=== PATIENT | male | born 1970 | race Caucasian/White ===

== ENCOUNTER 2016-11-04 11:54 | Emergency (ER) | payer MEDICARE, OTHER ==
[~2016-11-04] VITALS: Ht 165.1 cm; Wt 49.9 kg
[~2016-11-04 11:54] MED LIST: ACETAMINOPHEN325 M1 ORAL; ASCORBIC ACID500 MG ORAL; BACTRIM DS TAB1 EAC1 ORAL; BP MED PO; CALCIUM ACETAT667 MG PO; CEPHALEXIN500 MG ORAL; CIPROFLOXA250 MG/5 M PO; CIPROFLOXACIN250 MG PO; CLONIDINE0.1 MG GT; CLONIDINE0.1 MG PO; CREON DR 24,001 EACH PO; DEXTROSE 50%-WA50 M1 IV; DOCUSATE SODIU100 MG ORAL; FLAGYL500 MG ORAL; HEPARIN1000 UNIT/ SUBQ; HUMALOG100 UNIT/4 SUBQ; IMODIUM2 MG ORAL; LABETALOL H5 MG/1 M1 PO; LABETALOL HCL300 MG ORAL; MEROPENEM500 MG IVPB; METRONIDAZOLE500 MG ORAL; NORCO 5-325 TA1 EACH ORAL; NOVOLOG100 UNIT/3 SUBQ; QUESTRAN POWDER4 GM ORAL; REGLAN5 MG ORAL; SALINE 10ML FLU10 ML IVF; TYLENOL EXTRA500 MG ORAL; VANCOMYCIN HCL1 G1 IV; ZINC SULFATE220 M1 ORAL; ZOFRAN4 MG ORAL
[2016-11-04 11:59] VITALS: BP 119/64
[2016-11-04 12:46] LABS: BASOPHILS % (AUTO) 1.4 % (0.0-2.0); EOSINOPHILS % (AUTO) 2.6 % (0.0-3.0); LYMPHOCYTES % (AUTO) 25.5 % (20.0-45.0); MEAN CORPUSCULAR HEMOGLOBIN 32.2 PG (27.0-31.0); MEAN CORPUSCULAR HGB CONC 33.5 G/DL (32.0-36.0); MEAN CORPUSCULAR VOLUME 96 FL (80-99); MONOCYTES % (AUTO) 10.1 % (1.0-10.0); NEUTROPHILS % (AUTO) 60.5 % (45.0-75.0); PLATELET COUNT 242 K/UL (150-450); RED BLOOD COUNT 2.67 M/UL (4.70-6.10)
--- NOTE | 2016-11-04 12:46 | Emergency Room Report ---
History of Present Illness General Chief Complaint: Dizziness Source: Patient Present Illness HPI History present with reports of lightheadedness and dizziness Patient reports that when he sitting up he feels increased dizziness Patient had dialysis early this morning and finished at approximately 9 this morning Patient reports recent abdominal surgery with what appears to be a laparoscopic cholecystectomy last week at another facility Denies any vomiting or diarrhea denies any chest pain shortness of breath Patient has had several dialysis procedures since beginning to feel lightheaded last week Otherwise denies any syncopal episodes Allergies: Coded Allergies: No Known Allergies (Unverified , 08/16/14) Patient History Past Medical History: see triage record Pertinent Family History: none Reviewed Nursing Documentation: PMH: Agreed, PSxH: Agreed Nursing Documentation-PMH Hx Cardiac Problems: Yes Hx Hypertension: Yes Hx Pacemaker: No Hx Asthma: No Hx COPD: No Hx Diabetes: Yes Hx Cancer: No Hx Gastrointestinal Problems: No Hx Dialysis: Yes - TUES, THURS, SAT Hx Neurological Problems: Yes Hx Cerebrovascular Accident: No Hx Transient Ischemic Attacks: No Hx Seizures: No Hx Peripheral Neuropathy: Yes Hx Headaches: Yes Hx Numbness: Yes Review of Systems All Other Systems: negative except mentioned in HPI Physical Exam Vital Signs Date Time Temp Pulse Resp B/P (MAP) Pulse Ox O2 Delivery O2 Flow Rate FiO2 11/04/16 11:59 98.1 85 20 119/64 98 Room Air Sp02 EP Interpretation: reviewed, normal General Appearance: well appearing, no apparent distress Head: normocephalic, atraumatic Eyes: bilateral eye PERRL, bilateral eye EOMI ENT: hearing grossly normal, normal pharynx, TMs + canals normal, uvula midline Neck: full range of motion, supple, no meningismus, no bony tend Respiratory: lungs clear, normal breath sounds, no rhonchi, no respiratory distress, no retraction, no accessory muscle use Cardiovascular #1: normal peripheral pulses, regular rate, rhythm, no edema, no gallop, no JVD, no murmur Gastrointestinal: normal bowel sounds, non tender, soft, no mass, no organomegaly, non-distended, no guarding, no hernia, no pulsatile mass, no rebound Genitourinary: no CVA tenderness Musculoskeletal: normal inspection Neurologic: oriented x3, responsive, 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, motor strength/ tone normal, sensory intact Psychiatric: mood/affect normal Skin: normal color, no rash, warm/dry, palpation normal Lymphatic: normal inspection, no adenopathy Medical Decision Making Diagnostic Impression: Primary Impression: Dizziness ER Course Patient is a fairly complex patient with multiple differential to consideration including but not limited to cardiac cardiopulmonary and vascular emergencies Patient blood work reveals some chronic anemia with hemoglobin 8.6 however the patient has had hemoglobin and this level previously No signs of any active hemorrhage patient at this time remains hemodynamically appropriate blood pressure 1:30 systolic Patient has followup appointment with his surgeon for the gallbladder removal today and will follow closely Labs Test 11/04/16 12:29 White Blood Count 6.0 K/UL (4.8-10.8) Red Blood Count 2.67 M/UL (4.70-6.10) Hemoglobin 8.6 G/DL (14.2-18.0) Hematocrit 25.7 % (42.0-52.0) Mean Corpuscular Volume 96 FL (80-99) Mean Corpuscular Hemoglobin 32.2 PG (27.0-31.0) Mean Corpuscular Hemoglobin Concent 33.5 G/DL (32.0-36.0) Red Cell Distribution Width 12.0 % (11.6-14.8) Platelet Count 242 K/UL (150-450) Mean Platelet Volume 6.0 FL (6.5-10.1) Neutrophils (%) (Auto) 60.5 % (45.0-75.0) Lymphocytes (%) (Auto) 25.5 % (20.0-45.0) Monocytes (%) (Auto) 10.1 % (1.0-10.0) Eosinophils (%) (Auto) 2.6 % (0.0-3.0) Basophils (%) (Auto) 1.4 % (0.0-2.0) Sodium Level 139 mEQ/L (135-145) Potassium Level 3.5 mEQ/L (3.4-4.9) Chloride Level 93 mEQ/L (98-107) Carbon Dioxide Level 35 mEQ/L (20-30) Anion Gap 11 (5-15) Blood Urea Nitrogen 13 mg/dL (7-23) Creatinine 5.7 mg/dL (0.7-1.2) Estimat Glomerular Filtration Rate 10.8 mL/min (>60) Glucose Level 229 mg/dL (74-106) Calcium Level 7.9 mg/dL (8.6-10.2) Total Bilirubin 0.3 mg/dL (0.0-1.2) Aspartate Amino Transf (AST/SGOT) 16 U/L (5-40) Alanine Aminotransferase (ALT/SGPT) 19 U/L (3-41) Alkaline Phosphatase 125 U/L (40-129) Total Creatine Kinase 102 U/L (38-174) Creatine Kinase MB 4.6 ng/mL (< 6.7) Creatine Kinase MB Relative Index 4.5 Troponin I < 0.30 ng/mL (<=0.30) Total Protein 7.2 g/dL (6.6-8.7) Albumin 3.8 g/dL (3.5-5.2) Globulin 3.4 g/dL Albumin/Globulin Ratio 1.1 (1.0-2.7) Rhythm Strip Diag. Results EP Interpretation: yes Rate: 67 Rhythm: NSR, no PVC's, no ectopy Last Vital Signs Date Time Temp Pulse Resp B/P (MAP) Pulse Ox O2 Delivery O2 Flow Rate FiO2 11/04/16 11:59 98.1 85 20 119/64 98 Room Air Status: improved Disposition: HOME, SELF-CARE Condition: Improved Referrals: AKBAR MORALES (PCP) Additional Instructions: Patient is provided with the discharge instructions notified to follow up with primary doctor in the next 2-3 days otherwise return to the er with any worsening symptoms. Please note that this report is being documented using [employer] technology. This can lead to erroneous entry secondary to incorrect interpretation by the dictating instrument. JARROD BARTHOLOMEW D.O. Nov 04, 2016 12:46
[2016-11-04 12:59] LABS: ALBUMIN/GLOBULIN RATIO 1.1 (1.0-2.7); CALCIUM 7.9 mg/dL (8.6-10.2); CREATININE 5.7 mg/dL (0.7-1.2); GLOMERULAR FILTRATION RATE 10.8 mL/min (>60); POTASSIUM 3.5 mEQ/L (3.4-4.9); TOTAL PROTEIN 7.2 g/dL (6.6-8.7)
[2016-11-04 13:02] LABS: TROPONIN I < 0.30 ng/mL (<=0.30)
[2016-11-04 13:09] LABS: CKMB 4.6 ng/mL (< 6.7)
[2016-11-04 13:20] VITALS: BP 130/65
[2016-11-04 13:23] VITALS: BP 130/65
--- NOTE | 2016-11-05 14:47 | Cardiology Report ---
APPROVED REPORT EKG Measurement Heart [id number] Normal sinus rhythm Nonspecific ST abnormality Abnormal ECG
== END 2016-11-04 13:24 | disposition home or self-care (01) ==
LOC: EMR 12:32
DX: R42 Dizziness and giddiness (principal); Z90.49 Acquired absence of other specified parts of digestive tract; I10 Essential (primary) hypertension; E11.42 Type 2 diabetes mellitus with diabetic polyneuropathy
CPT/HCPCS: 36415; 80053; 82550; 82553; 84484; 85025; 93005; 99284

== ENCOUNTER 2016-11-06 13:35 | Emergency (ER) | payer MEDICARE, OTHER ==
[~2016-11-06] VITALS: Ht 165.1 cm; Wt 52.2 kg
[2016-11-06 13:56] VITALS: BP_SYST 114; BP_SYST 94; BP_DIAS 59; BP_DIAS 60
[2016-11-06] MEDS ORDERED: Acetaminophen 500mg (ES) tab ORAL ONE (14:15)
--- NOTE | 2016-11-06 14:17 | Emergency Room Report ---
History of Present Illness General Chief Complaint: General Complaint Source: Patient Present Illness HPI 46-year-old male, history of end-stage renal disease on dialysis Thursday and Thursday, last dialysis was completed today, presenting with one week of headache, diarrhea, lightheadedness. Patient states that he has had watery brown diarrhea about 5 episodes today for the last 7 days. Reports some nausea but no vomiting. Denies any abdominal pain. Also complaining of lightheadedness especially when he walks associated with a constant generalized headache. Denies any blurry vision, neck pain, motor sensory weakness. Patient states that he has not taken anything for the headache pain. Patient states that he was at dialysis today, told them that he had a headache, but they did not do anything. Patient was last seen in the emergency room 2 days ago for dizziness after dialysis, states that he frequently gets dizzy after dialysis. Denies any fever chills chest pain shortness of breath Allergies: Coded Allergies: No Known Allergies (Unverified , 08/16/14) Patient History Past Medical History: see triage record Past Surgical History: none Pertinent Family History: none Reviewed Nursing Documentation: PMH: Agreed, PSxH: Agreed Nursing Documentation-PMH Past Medical History: No History, Except For Hx Cardiac Problems: Yes Hx Hypertension: Yes Hx Pacemaker: No Hx Asthma: No Hx COPD: No Hx Diabetes: Yes Hx Cancer: No Hx Gastrointestinal Problems: No Hx Dialysis: Yes - , , THU Hx Neurological Problems: Yes Hx Cerebrovascular Accident: No Hx Transient Ischemic Attacks: No Hx Seizures: No Hx Peripheral Neuropathy: Yes Hx Headaches: Yes Hx Numbness: Yes Review of Systems All Other Systems: negative except mentioned in HPI Physical Exam Vital Signs Date Time Temp Pulse Resp B/P (MAP) Pulse Ox O2 Delivery O2 Flow Rate FiO2 11/06/16 13:38 98.2 80 18 94/60 98 Room Air Sp02 EP Interpretation: reviewed, normal General Appearance: normal inspection, well appearing, alert, GCS 15, non-toxic , other - Middle aged male, conversing appropriately, appears tired however nontoxic Head: normocephalic, atraumatic Eyes: bilateral eye normal inspection, bilateral eye PERRL, bilateral eye EOMI ENT: normal ENT inspection, normal pharynx, normal voice, moist mucus membranes Neck: normal inspection, full range of motion, supple Respiratory: normal inspection, lungs clear, normal breath sounds, no respiratory distress, no retraction, no wheezing, speaking full sentences, chest symmetrical Cardiovascular #1: normal inspection, regular rate, rhythm, no edema, normal capillary refill Cardiovascular #2: 2+ radial (R), 2+ radial (L) Gastrointestinal: normal inspection, normal bowel sounds, non tender, soft, non -distended, no guarding Genitourinary: no CVA tenderness Musculoskeletal: normal inspection, back normal, normal range of motion, non- tender, other - Left upper extremity AV fistula with palpable thrill Neurologic: normal inspection, alert, oriented x3, responsive, 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 Also with one week of diarrhea and lightheadedness. DDX: Headache likely secondary to dehydration/hypovolemia Other serious diagnoses on differential such as intracranial bleed/sah, meningitis/encephalitis, tumor, however patients H&P is more consistent with benign etiology at this time. There are no neurological signs/symptoms/findings on physical exam and patient appears nontoxic. Diarrhea: Gastroenteritis, denies any history of recent antibiotic No abdominal tenderness at this time, CT not indicated Plan: Pain control Gentle IV fluids ER course: Patient's blood pressure borderline hypotensive, and other visits his systolic ~ 130, today it is around 100. Gentle hydration given, 500 mL at 200 mL/hour Pts BP has been consistently above 110 feels much better Disposition: Patient will be discharged to home. Patient instructed to follow up with primary care doctor within 5 days. Strict return precautions discussed with patient such as severe/worsening dizziness, nausea, vomiting, profuse diarrhea, inability to tolerate PO, fever chills,. Patient verbalized understanding. Please note that this Emergency Department Report was dictated using [employer] media content specialist technology software, occasionally this can lead to erroneous entry secondary to interpretation by the dictation equipment. Laboratory Tests Test 11/06/16 14:04 White Blood Count 7.0 K/UL (4.8-10.8) Red Blood Count 2.41 M/UL (4.70-6.10) L Hemoglobin 8.1 G/DL (14.2-18.0) L Hematocrit 23.0 % (42.0-52.0) L Mean Corpuscular Volume 96 FL (80-99) Mean Corpuscular Hemoglobin 33.5 PG (27.0-31.0) H Mean Corpuscular Hemoglobin Concent 35.0 G/DL (32.0-36.0) Red Cell Distribution Width 11.8 % (11.6-14.8) Platelet Count 288 K/UL (150-450) Mean Platelet Volume 7.3 FL (6.5-10.1) Neutrophils (%) (Auto) 60.5 % (45.0-75.0) Lymphocytes (%) (Auto) 27.7 % (20.0-45.0) Monocytes (%) (Auto) 7.6 % (1.0-10.0) Eosinophils (%) (Auto) 2.3 % (0.0-3.0) Basophils (%) (Auto) 1.9 % (0.0-2.0) Sodium Level 137 mEQ/L (135-145) Potassium Level 4.1 mEQ/L (3.4-4.9) Chloride Level 91 mEQ/L (98-107) L Carbon Dioxide Level 38 mEQ/L (20-30) H Anion Gap 8 (5-15) Blood Urea Nitrogen 10 mg/dL (7-23) Creatinine 4.8 mg/dL (0.7-1.2) H Estimate Glomerular Filtration Rate 13.2 mL/min (>60) Glucose Level 220 mg/dL (74-106) H Calcium Level 8.4 mg/dL (8.6-10.2) L Total Bilirubin 0.4 mg/dL (0.0-1.2) Aspartate Amino Transferase (AST) 22 U/L (5-40) Alanine Aminotransferase (ALT) 19 U/L (3-41) Alkaline Phosphatase 128 U/L (40-129) Total Protein 7.6 g/dL (6.6-8.7) Albumin 3.9 g/dL (3.5-5.2) Globulin 3.7 g/dL Albumin/Globulin Ratio 1.0 (1.0-2.7) Lipase 16 U/L (< 60) Rhythm Strip Diag. Results EP Interpretation: yes Rate: 78 Rhythm: NSR, no PVC's, no ectopy Last Vital Signs Date Time Temp Pulse Resp B/P (MAP) Pulse Ox O2 Delivery O2 Flow Rate FiO2 11/06/16 13:56 98.8 18 94/60 98 Room Air 11/06/16 13:38 80 Disposition: HOME, SELF-CARE Condition: Improved Patient Instructions: Diarrhea, Adult, [id number], Dizziness, [id number] Tito Fontanez M.D. Nov 06, 2016 14:17
[2016-11-06 14:28] LABS: BASOPHILS % (AUTO) 1.9 % (0.0-2.0); EOSINOPHILS % (AUTO) 2.3 % (0.0-3.0); LYMPHOCYTES % (AUTO) 27.7 % (20.0-45.0); MEAN CORPUSCULAR HEMOGLOBIN 33.5 PG (27.0-31.0); MEAN CORPUSCULAR VOLUME 96 FL (80-99); MEAN PLATELET VOLUME 7.3 FL (6.5-10.1); MONOCYTES % (AUTO) 7.6 % (1.0-10.0); NEUTROPHILS % (AUTO) 60.5 % (45.0-75.0); PLATELET COUNT 288 K/UL (150-450); RED BLOOD COUNT 2.41 M/UL (4.70-6.10); RED CELL DISTRIBUTION WIDTH 11.8 % (11.6-14.8)
[2016-11-06 14:46] LABS: CALCIUM 8.4 mg/dL (8.6-10.2); CREATININE 4.8 mg/dL (0.7-1.2); GLOMERULAR FILTRATION RATE 13.2 mL/min (>60); POTASSIUM 4.1 mEQ/L (3.4-4.9); TOTAL PROTEIN 7.6 g/dL (6.6-8.7)
[2016-11-06 15:00] VITALS: BP 128/66
[2016-11-06 16:09] VITALS: BP 114/73
[2016-11-06] MEDS ORDERED: HUMALOG100 UNIT/4 SUBQ (16:24)
[2016-11-06 16:37] VITALS: BP 114/68
== END 2016-11-06 16:40 | disposition home or self-care (01) ==
LOC: EMR 14:35
DX: R42 Dizziness and giddiness (principal); R19.7 Diarrhea, unspecified; R51 Headache; E11.9 Type 2 diabetes mellitus without complications; I12.0 Hypertensive chronic kidney disease with stage 5 chronic kidney disease or end stage renal disease; N18.6 End stage renal disease; Z99.2 Dependence on renal dialysis
CPT/HCPCS: 36415; 80053; 83690; 85025; 96361; 96374; 99284; J2405; J7040

== ENCOUNTER 2016-11-27 08:51 | Emergency (ER) | payer MEDICARE, OTHER ==
[~2016-11-27] VITALS: Ht 165.1 cm; Wt 59.0 kg
[~2016-11-27 08:51] MED LIST changes: +LANTUS SOL100 UNIT/1 SUBQ
[2016-11-27 09:35] VITALS: BP 152/80
[2016-11-27] MEDS ORDERED: CIPROFLOXACIN500 M2 ORAL (10:19)
--- NOTE | 2016-11-27 10:22 | Emergency Room Report ---
History of Present Illness General Chief Complaint: Back Pain-No Injury Source: Patient, Medical Record Present Illness HPI Patient presents with complaints of left-sided flank discomfort Ongoing for the past several weeks patient has been on pain medication and put lidocaine patch in that area by his primary physician After dialysis today he presents for further evaluation Denies any chest pain or shortness of breath denies any cough Denies any abdominal pain Patient does not make any urine His dialysis is on Thursday and Saturdays Denies any fall or trauma Allergies: Coded Allergies: No Known Allergies (Unverified , 08/16/14) Patient History Past Medical History: see triage record Pertinent Family History: none Reviewed Nursing Documentation: PMH: Agreed, PSxH: Agreed Nursing Documentation-PMH Past Medical History: No History, Except For Hx Cardiac Problems: Yes Hx Hypertension: Yes Hx Pacemaker: No Hx Asthma: No Hx COPD: No Hx Diabetes: Yes Hx Cancer: No Hx Gastrointestinal Problems: No Hx Dialysis: Yes - , , THU History Of Psychiatric Problem: No Hx Neurological Problems: Yes Hx Cerebrovascular Accident: No Hx Transient Ischemic Attacks: No Hx Seizures: No Hx Peripheral Neuropathy: Yes Hx Headaches: Yes Hx Numbness: Yes Review of Systems All Other Systems: negative except mentioned in HPI Physical Exam Vital Signs Date Time Temp Pulse Resp B/P (MAP) Pulse Ox O2 Delivery O2 Flow Rate FiO2 11/27/16 08:55 98.1 81 14 157/83 98 Room Air Sp02 EP Interpretation: reviewed, normal General Appearance: well appearing, no apparent distress Head: normocephalic, atraumatic Eyes: bilateral eye PERRL, bilateral eye EOMI ENT: hearing grossly normal, normal pharynx, TMs + canals normal, uvula midline Neck: full range of motion, supple, no meningismus, no bony tend Respiratory: lungs clear, normal breath sounds, no rhonchi, no respiratory distress, no retraction, no accessory muscle use Cardiovascular #1: normal peripheral pulses, regular rate, rhythm, no edema, no gallop, no JVD, no murmur Gastrointestinal: normal bowel sounds, non tender, soft, no mass, no organomegaly, non-distended, no guarding, no hernia, no pulsatile mass, no rebound Genitourinary: no CVA tenderness Musculoskeletal: other - Patient's discomfort is fairly reproducible palpation over the flank area mid axillary rib cage region causes discomfort, no obvious pleurisy, , Neurologic: oriented x3, responsive, telecommunications field technician III-XII nml as tested, motor strength/ tone normal, sensory intact Psychiatric: mood/affect normal Skin: normal color, no rash, warm/dry, palpation normal Lymphatic: normal inspection, no adenopathy Medical Decision Making Diagnostic Impression: Primary Impression: flank pain ER Course Multiple differentials considered including but not limited to pulmonary, renal , infectious Patient has no make any urine however consideration for UTIs made given that the patient was given pain medication recently Patient also has previous recent imaging and blood work this was not repeated And the patient is stable for initial conservative outpatient trial , , Last Vital Signs Date Time Temp Pulse Resp B/P (MAP) Pulse Ox O2 Delivery O2 Flow Rate FiO2 11/27/16 09:35 98.4 80 16 152/80 99 Room Air Status: unchanged Disposition: HOME, SELF-CARE Condition: Stable Scripts Ciprofloxacin Hcl* (CIPROFLOXACIN HCL*) 500 Mg Tablet 500 MG ORAL Q12H, #10 TAB 0 Refills Prov: JARROD BARTHOLOMEW D.O. 11/27/16 Referrals: NON PHYSICIAN (PCP) Patient Instructions: Flank Pain, [id number], Back Pain, Adult Additional Instructions: Patient is provided with the discharge instructions notified to follow up with primary doctor in the next 2-3 days otherwise return to the er with any worsening symptoms. Please note that this report is being documented using [employer] technology. This can lead to erroneous entry secondary to incorrect interpretation by the dictating instrument. JARROD BARTHOLOMEW D.O. Nov 27, 2016 10:22
[2016-11-27 10:42] VITALS: BP 144/72
[2016-11-27 10:45] VITALS: BP 144/72
== END 2016-11-27 10:46 | disposition home or self-care (01) ==
LOC: EMR 09:30
DX: R10.9 Unspecified abdominal pain (principal); I10 Essential (primary) hypertension; E11.9 Type 2 diabetes mellitus without complications
CPT/HCPCS: 99283

== ENCOUNTER 2016-11-29 22:26 | Emergency (ER) | payer MEDICARE, OTHER ==
[~2016-11-29] VITALS: Ht 165.1 cm; Wt 56.7 kg
[~2016-11-29 22:26] MED LIST changes: +CIPROFLOXACIN500 M2 ORAL
[2016-11-29 22:50] VITALS: BP 155/89
[2016-11-29] MEDS ORDERED: Acetaminophen 500mg (ES) tab ORAL ONE (23:15)
[2016-11-29] MEDS ORDERED: Methocarbamol 750mg tab ORAL ONE (23:15)
--- NOTE | 2016-11-29 23:32 | Emergency Room Report ---
History of Present Illness General Chief Complaint: Back Pain-No Injury Source: Patient Present Illness HPI 46-year-old male history of end-stage renal disease, chronic upper back pain, presenting with left upper back pain. Patient states that he has had left upper back pain for 3 weeks, has seen multiple doctors, hasn't taking Morrison with some relief. Denies any trauma. The pain is worse with movement. No chest pain shortness of breath nausea vomiting No weakness of her legs or arms no numbness Allergies: Coded Allergies: No Known Allergies (Unverified , 07/09/15) Patient History Past Medical History: see triage record Past Surgical History: none Pertinent Family History: none Reviewed Nursing Documentation: PMH: Agreed, PSxH: Agreed Nursing Documentation-PMH Hx Hypertension: Yes Hx Diabetes: Yes Hx Dialysis: Yes - Review of Systems All Other Systems: negative except mentioned in HPI Physical Exam Vital Signs Date Time Temp Pulse Resp B/P (MAP) Pulse Ox O2 Delivery O2 Flow Rate FiO2 11/29/16 22:45 97.9 79 18 155/89 99 Room Air Sp02 EP Interpretation: reviewed, normal General Appearance: normal inspection, well appearing, no apparent distress, alert, GCS 15, non-toxic Head: normocephalic, atraumatic Eyes: bilateral eye normal inspection, bilateral eye PERRL, bilateral eye EOMI ENT: normal ENT inspection, normal pharynx, normal voice, moist mucus membranes Neck: normal inspection, full range of motion, supple Respiratory: normal inspection, lungs clear, normal breath sounds, no respiratory distress, no retraction, no wheezing, speaking full sentences, chest symmetrical Cardiovascular #1: normal inspection, regular rate, rhythm, no edema, normal capillary refill Cardiovascular #2: 2+ radial (R), 2+ radial (L) Gastrointestinal: normal inspection, non tender, soft, non-distended, no guarding Genitourinary: no CVA tenderness Musculoskeletal: other - Left paraspinal midthoracic tenderness, no midline tenderness Neurologic: normal inspection, alert, oriented x3, responsive, motor strength/ tone normal, sensory intact, normal gait, speech normal Psychiatric: normal inspection, judgement/insight normal, memory normal Skin: normal inspection, normal color, no rash, warm/dry, well hydrated, normal turgor Medical Decision Making Diagnostic Impression: Primary Impression: Back pain ER Course 46-year-old male p/w back pain For 3 weeks DDX: likely musculoskeletal back pain vs. muscular strain Lumbar fracture is unlikely given patients age, no midline tenderness, no history of trauma, and that patient is ambulatory. Therefore, at this time no imaging is indicated Serious diagnoses such as cord compression, epidural abscess is unlikely in this patient given the clinical scenario and abscess of neurological symptoms or findings. Patient appears nontoxic. Plan: Tylenol , robaxin ER course: Patient has remained nontoxic appearing and ambulatory in the ED. Pain improved w/ medications Disposition: Patient will be discharged to home with prescription of robaxin Patient cautioned of the effects of robaxin including possible impairment of physical or mental abilities. Patient was instructed to refrain from operating machinery or driving. Patient is also cautioned on the GI effects of motrin and to take sparingly. Patient verbalized understanding. Strict precautions discussed with patient on when to emergently return to the ED which includes severe/worsening back pain, leg weakness/numbness, urinary retention/incontinence, fever or chills, which may indicate severe illness. Patient is to follow up with their PMD within 5 days. Patient agrees with plan. Please note that this Emergency Department Report was dictated using [employer] Peoplebuilding maintenance custodian technology software, occasionally this can lead to erroneous entry secondary to interpretation by the dictation equipment. Last Vital Signs Date Time Temp Pulse Resp B/P (MAP) Pulse Ox O2 Delivery O2 Flow Rate FiO2 11/29/16 22:50 97.9 18 155/89 99 Room Air 11/29/16 22:45 79 Disposition: HOME, SELF-CARE Condition: Improved Scripts Methocarbamol* (ROBAXIN-750*) 750 Mg Tablet 750 MG PO QID, #28 TAB 0 Refills Prov: Tito Fontanez M.D. 11/29/16 Referrals: NOT CHOSEN FRANKLIN/,REFERRING (PCP) Tito Fontanez M.D. Nov 29, 2016 23:32
[2016-11-29] MEDS ORDERED: ROBAXIN-750750 MG PO (23:40)
[2016-11-29 23:54] VITALS: BP 148/82
== END 2016-11-29 23:54 | disposition home or self-care (01) ==
LOC: EMR 22:41 → MERGE 22:41 → EMR 23:54
DX: M54.6 Pain in thoracic spine (principal); E11.9 Type 2 diabetes mellitus without complications; I12.0 Hypertensive chronic kidney disease with stage 5 chronic kidney disease or end stage renal disease; N18.6 End stage renal disease; Z99.2 Dependence on renal dialysis
CPT/HCPCS: 99283

== ENCOUNTER 2017-01-26 15:26 | Emergency (ER) | payer MEDICARE, OTHER ==
[~2017-01-26] VITALS: Ht 165.1 cm; Wt 56.2 kg
[~2017-01-26 15:26] MED LIST changes: +ROBAXIN-750750 MG PO
[2017-01-26] MEDS ORDERED: [UNRECOGNIZED DRUG - REMARK] (15:35)
[2017-01-26] MEDS ORDERED: [UNRECOGNIZED DRUG - REMARK] (15:35)
[2017-01-26 15:40] VITALS: BP 124/64
[2017-01-26] MEDS ORDERED: ceFAZolin 1gm/50ml Premix 50 ML IV ONE (16:00)
[2017-01-26] MEDS ORDERED: ceFAZolin sod 1 GM in NS 55 ML IVPB ONE (16:00)
--- NOTE | 2017-01-26 16:02 | Emergency Room Report ---
History of Present Illness General Chief Complaint: Eye Problems Source: Medical Record Present Illness HPI 47-year-old male presents ED with pain and swelling to left lower eyelid x3 days. Pain as throbbing, 6/10, nonradiating. Denies fevers or chills. Denies chest pain. Denies photophobia or blurry vision. Patient gets dialysis Thursday. No other aggravating factors. Denies any other associated symptoms Allergies: Coded Allergies: No Known Allergies (Unverified , 07/09/15) Patient History Past Medical History: DM, HTN, renal disease, dialysis Past Surgical History: none Pertinent Family History: none Social History: Denies: smoking, alcohol use, drug use Reviewed Nursing Documentation: PMH: Agreed, PSxH: Agreed Nursing Documentation-PMH Hx Hypertension: Yes Hx Diabetes: Yes Hx Dialysis: Yes - ; last dialyzed Thursday Review of Systems All Other Systems: negative except mentioned in HPI Physical Exam Vital Signs Date Time Temp Pulse Resp B/P (MAP) Pulse Ox O2 Delivery O2 Flow Rate FiO2 01/26/17 15:30 97.9 88 18 116/61 98 Room Air Sp02 EP Interpretation: reviewed, normal General Appearance: no apparent distress, alert, GCS 15, non-toxic Head: normocephalic, atraumatic Eyes: left eye lid inflammation - L lower eyelid swelling, bilateral eye normal inspection, bilateral eye PERRL, bilateral eye EOMI ENT: hearing grossly normal, normal pharynx, no angioedema, normal voice Neck: normal inspection Respiratory: normal inspection Cardiovascular #1: normal inspection Gastrointestinal: normal inspection Rectal: deferred Genitourinary: no CVA tenderness Musculoskeletal: normal inspection Neurologic: alert, oriented x3, responsive, motor strength/tone normal, sensory intact, speech normal Psychiatric: normal inspection Skin: normal inspection Lymphatic: normal inspection Medical Decision Making Diagnostic Impression: Primary Impression: Eyelid cellulitis Qualified Codes: H00.036 - Abscess of eyelid left eye, unspecified eyelid Additional Impression: ESRD (end stage renal disease) on dialysis ER Course Hospital Course 47-year-old male presents to ED with redness, swelling to L lower eyelid Differential diagnoses include: Cellulitis, dermatitis, insect bite, abscess Clinical course Patient placed on stretcher. After initial history, physical exam reveals a male in no acute distress. On exam there is a induration and swelling to left lower eyelid. No fluctuance or discharge. Patient appears well and nontoxic Patient is a dialysis patient gets dialysis Thursday. Patient given IV dose of Ancef here and will be discharged on renal dosing of Keflex twice a day Diagnosis - eyelid cellulitis, ESRD on dialysis stable and discharged to home with prescription for Keflex. Instructed to followup with PMD. Instructed return to ED if symptoms recur or worsen Last Vital Signs Date Time Temp Pulse Resp B/P (MAP) Pulse Ox O2 Delivery O2 Flow Rate FiO2 01/26/17 15:30 97.9 88 18 116/61 98 Room Air Status: improved Disposition: HOME, SELF-CARE Condition: Stable Scripts Cephalexin* (KEFLEX*) 500 Mg Capsule 500 MG ORAL BID for 7 Days, #14 CAP 0 Refills Prov: DIGNA AMADO M.D. 01/26/17 DIGNA AMADO M.D. Jan 26, 2017 16:01
[2017-01-26] MEDS ORDERED: KEFLEX500 MG ORAL (16:39)
[2017-01-26 16:45] VITALS: BP 118/60
== END 2017-01-26 16:45 | disposition home or self-care (01) ==
LOC: MERGE 16:00 → EMR 16:00
DX: H00.035 Abscess of left lower eyelid (principal); E11.22 Type 2 diabetes mellitus with diabetic chronic kidney disease; I12.0 Hypertensive chronic kidney disease with stage 5 chronic kidney disease or end stage renal disease; N18.6 End stage renal disease; Z99.2 Dependence on renal dialysis
CPT/HCPCS: 96365; 99284; J0690

== ENCOUNTER 2017-02-21 21:37 | Emergency (ER) | payer MEDICARE, OTHER ==
[~2017-02-21] VITALS: Ht 175.3 cm; Wt 72.6 kg
[~2017-02-21 21:37] MED LIST changes: +KEFLEX500 MG ORAL; +[UNRECOGNIZED DRUG - REMARK]; +[UNRECOGNIZED DRUG - REMARK]
--- NOTE | 2017-02-21 21:50 | Emergency Room Report ---
History of Present Illness General Chief Complaint: Altered Level of Consciousness Source: Patient, Medical Record, EMS Present Illness HPI Is a 47-year-old male with a history of diabetes and renal failure on hemodialysis. His dialysis days are Thursday, , and Thursday. He did not go to dialysis today because he felt weak and tired. Tonight his blood sugar was 399 and he took an extra 10 units of insulin. About an hour later he was found unresponsive and diaphoretic on the ground. Family called 911. EMS said his blood sugar was 27. They gave him D50 and he was slow to respond. There brought him here for evaluation. Now patient is alert oriented x3 but felt weak. No nausea no vomiting. No chest pain. No cough. Allergies: Coded Allergies: No Known Allergies (Unverified , 07/09/15) UNABLE TO ASSESS (Unverified , 02/21/17) Patient History Past Medical History: see triage record, old chart reviewed, DM, renal disease , dialysis Past Surgical History: other Pertinent Family History: none Social History: Denies: smoking Immunizations: other Reviewed Nursing Documentation: PMH: Agreed, PSxH: Agreed Nursing Documentation-PMH Hx Hypertension: Yes Hx Diabetes: Yes Hx Dialysis: Yes - ; last dialyzed Thursday Review of Systems Constitutional: Reports: malaise, weakness Eye: Denies: eye pain, blurred vision ENT: Denies: ear pain, nose congestion, throat swelling Respiratory: Denies: cough, shortness of breath Cardiovascular: Denies: chest pain, palpitations Gastrointestinal: Denies: abdominal pain, diarrhea, nausea, vomiting Musculoskeletal: Denies: back pain, joint pain Skin: Denies: rash Neurological: Denies: headache, numbness Endocrine: Denies: increased thirst, increased urine Hematologic/Lymphatic: Denies: easy bruising All Other Systems: negative except mentioned in HPI Physical Exam Vital Signs Date Time Temp Pulse Resp B/P (MAP) Pulse Ox O2 Delivery O2 Flow Rate FiO2 02/21/17 21:30 96.1 74 16 153/82 100 Non-Rebreather 12.0 vitals unremarkable Sp02 EP Interpretation: reviewed, normal General Appearance: no apparent distress, alert, thin Head: normocephalic, atraumatic Eyes: bilateral eye PERRL, bilateral eye EOMI ENT: hearing grossly normal, normal pharynx Neck: full range of motion, supple, no meningismus Respiratory: chest non-tender, lungs clear, normal breath sounds Cardiovascular #1: regular rate, rhythm, no murmur Gastrointestinal: normal bowel sounds, non tender, no mass, no organomegaly, no bruit, non-distended Musculoskeletal: back normal, gait/station normal, normal range of motion Psychiatric: mood/affect normal Skin: warm/dry Medical Decision Making Diagnostic Impression: Primary Impression: Altered level of consciousness Additional Impression: Hypoglycemia ER Course Patient present with a hypoglycemic episode altered mental status. He slowly becoming more responsive. He still has weakness but no focal deficit. He missed dialysis today. His potassium is normal however. I wanted to keep the patient for observation and dialysis in the hospital but he refused. Said he felt better and call his daughter to pick him up. No evidence of TIA or CVA. No evidence of infectious cause. He said he will go to dialysis center on Thursday which is New Year's Day to see if they can dialyze him. He had missed dialysis over the weekend in the past without a problem. EKG Diagnostic Results Rate: normal Rhythm: NSR ST Segments: no acute changes Rhythm Strip Diag. Results Rhythm Strip Time: 22:14 EP Interpretation: yes Rate: 71 Rhythm: NSR, no PVC's, no ectopy Chest X-Ray Diagnostic Results Chest X-Ray Diagnostic Results : Chest X-Ray Ordered: Yes # of Views/Limited/Complete: 1 View Indication: Shortness of Breath Interpretation: no consolidation, no effusion, other - mild vasc congestion Last Vital Signs Date Time Temp Pulse Resp B/P (MAP) Pulse Ox O2 Delivery O2 Flow Rate FiO2 02/21/17 21:30 96.1 74 16 153/82 100 Non-Rebreather 12.0 Status: improved Disposition: HOME, SELF-CARE Condition: Stable Patient Instructions: Altered Mental Status Additional Instructions: Go to dialysis immediately as soon as possible. Return if symptom worsen. Followup your DrRashid in 2-3 days. JESSICA LYMAN M.D. Feb 21, 2017 21:50
[2017-02-21 22:00] VITALS: BP 141/63
[2017-02-21 22:26] LABS: BASOPHILS % (AUTO) 1.7 % (0.0-2.0); EOSINOPHILS % (AUTO) 2.3 % (0.0-3.0); HEMATOCRIT 28.7 % (42.0-52.0); HEMOGLOBIN 9.6 G/DL (14.2-18.0); LYMPHOCYTES % (AUTO) 27.2 % (20.0-45.0); MEAN CORPUSCULAR VOLUME 92 FL (80-99); MONOCYTES % (AUTO) 6.9 % (1.0-10.0); NEUTROPHILS % (AUTO) 61.9 % (45.0-75.0); PLATELET COUNT 206 K/UL (150-450); RED BLOOD COUNT 3.12 M/UL (4.70-6.10); RED CELL DISTRIBUTION WIDTH 11.8 % (11.6-14.8); WHITE BLOOD COUNT 7.8 K/UL (4.8-10.8)
[2017-02-21 22:28] LABS: ANION GAP 19 mmol/L (5-15); BLOOD UREA NITROGEN 68 mg/dL (7-18); CALCIUM 6.1 MG/DL (8.5-10.1); CARBON DIOXIDE 18 MMOL/L (21-32); CHLORIDE 99 MMOL/L (98-107); CREATININE 13.2 MG/DL (0.55-1.30); SODIUM 136 MMOL/L (136-145)
[2017-02-21 22:48] LABS: ALANINE AMINOTRANSFERASE 33 U/L (12-78); ALBUMIN 3.3 G/DL (3.4-5.0); ALBUMIN/GLOBULIN RATIO 0.7 (1.0-2.7); ALKALINE PHOSPHATASE 143 U/L (46-116); ASPARTATE AMINO TRANSFERASE 25 U/L (15-37); BILIRUBIN,TOTAL 0.4 MG/DL (0.2-1.0); CKMB 5.9 NG/ML (0.0-3.6); CREATINE KINASE 248 U/L (26-308)
[2017-02-21] MEDS ORDERED: Naloxone 0.4mg/ml Inj IVP ONE (23:15)
[2017-02-22 00:20] VITALS: BP 134/76
--- NOTE | 2017-02-22 10:38 | Diagnostic Imaging Report ---
Indication: Shortness of breath Technique: XRAY Chest 1v Comparison: None Findings: Heart is borderline enlarged. Midsternal contours are sharp. Atherosclerotic calcifications noted in the aortic arch. There is pulmonary vascular congestion, with hazy opacity in the bases likely related to vascular crowding/congestion. Developing infiltrate is not entirely excluded. There may be early interstitial edema. There is no pleural effusion. No pneumothorax. Impression: Borderline cardiomegaly. Pulmonary vascular congestion with question of early developing interstitial edema. Haziness of the bilateral lower lungs likely related to vascular congestion/crowding however developing infectious infiltrate not entirely excluded. Clinical correlation recommended. Follow-up exam recommended as clinically indicated.
--- NOTE | 2017-02-25 19:26 | Cardiology Report ---
APPROVED REPORT EKG Measurement Heart [id number] [id number] Normal sinus rhythm Minimal voltage criteria for LVH, may be normal variant Prolonged QT Abnormal ECG
== END 2017-02-22 00:20 | disposition home or self-care (01) ==
LOC: EDBD 21:37 → MERGE 22:00 → EMR 22:00 → CANBEDREQ 02-22 00:37
DX: R41.82 Altered mental status, unspecified (principal); E11.649 Type 2 diabetes mellitus with hypoglycemia without coma; I10 Essential (primary) hypertension; N19 Unspecified kidney failure; Z99.2 Dependence on renal dialysis
CPT/HCPCS: 36415; 71010; 80053; 82550; 82553; 84484; 85025; 93005; 96372; 99284; J2310

== ENCOUNTER 2017-02-28 18:24 | Inpatient (IN) | payer MEDICARE, OTHER ==
[~2017-02-28] VITALS: Ht 152.4 cm; Wt 55.8 kg
--- NOTE | 2017-02-28 18:43 | Emergency Room Report ---
History of Present Illness General Chief Complaint: Generalized Weakness Source: Patient Present Illness HPI The patient presents with fever and hypotension. He had dialysis today. He's had a cough and watery diarrhea. His temperature is 102 last night. His blood pressure low in the field and he feels weak. He does not make urine at this time. The dialysis was earlier today. No rashes, chest pain, abdominal pain. No pain at fistula. Dialysis , Thu. He was treated for hypoglycemia 02/21. He was complaining of weakness at that time. Glucose was 27 initially then 145. He is a diabetic on insulin. Allergies: Coded Allergies: No Known Allergies (Unverified , 07/09/15) Patient History Past Medical History: see triage record Past Surgical History: other - fistula Social History: Denies: smoking, alcohol use, drug use Social History Narrative at home Reviewed Nursing Documentation: PMH: Agreed, PSxH: Agreed Nursing Documentation-PMH Hx Hypertension: Yes Hx Diabetes: Yes Hx Dialysis: Yes - - Review of Systems All Other Systems: negative except mentioned in HPI Physical Exam Vital Signs Date Time Temp Pulse Resp B/P (MAP) Pulse Ox O2 Delivery O2 Flow Rate FiO2 02/28/17 18:27 98.4 82 21 73/46 96 Room Air Sp02 EP Interpretation: reviewed, normal General Appearance: well appearing, no apparent distress, GCS 15 Head: normocephalic Eyes: bilateral eye normal inspection, bilateral eye PERRL ENT: moist mucus membranes Neck: supple Respiratory: lungs clear, normal breath sounds Cardiovascular #1: regular rate, rhythm Cardiovascular #2: 2+ radial (R) - fistula with thrill forearm Gastrointestinal: normal inspection, normal bowel sounds, non tender, no mass, non-distended Musculoskeletal: back normal, gait/station normal, normal range of motion Neurologic: alert, oriented x3, grossly normal Psychiatric: mood/affect normal Skin: normal inspection, warm/dry Medical Decision Making Diagnostic Impression: Primary Impression: Sepsis Qualified Codes: A41.9 - Sepsis, unspecified organism Additional Impressions: Hypotension Qualified Codes: I95.9 - Hypotension, unspecified ESRD (end stage renal disease) on dialysis ER Course Patient presents with history of fever and hypotension after dialysis. Differential includes sepsis, pneumonia, other occult infection including bacteremia. We need to exclude cardiac cause of low BP. Patient evaluated EKG , chest x-ray and labs. Because of diagnosis of ESRD a small normal saline bolus will be given. Blood cultures and lactate will be obtained. The patient's lactic acid is high. Because he is a dialysis patient no aggressive fluid hydration will be performed. His blood pressures better after the fluid bolus. Antibiotics are begun. Chest x-ray shows a questionable right lower lobe infiltrate. Other labs sig for ESRD. EKG without injury. Troponin negative. Influenza negative. The patient is admitted to Dr. Galvan. The patient required explanation as to why he had to be in the hospital. He still was attempting to go home. Is improved but he still needs to go to a telemetry bed. Laboratory Tests Test 02/28/17 19:15 White Blood Count 8.0 K/UL (4.8-10.8) Red Blood Count 3.51 M/UL (4.70-6.10) L Hemoglobin 9.7 G/DL (14.2-18.0) L Hematocrit 31.5 % (42.0-52.0) L Mean Corpuscular Volume 90 FL (80-99) Mean Corpuscular Hemoglobin 27.7 PG (27.0-31.0) Mean Corpuscular Hemoglobin Concent 30.9 G/DL (32.0-36.0) L Red Cell Distribution Width 11.7 % (11.6-14.8) Platelet Count 261 K/UL (150-450) Mean Platelet Volume 6.2 FL (6.5-10.1) L Neutrophils (%) (Auto) 56.6 % (45.0-75.0) Lymphocytes (%) (Auto) 24.8 % (20.0-45.0) Monocytes (%) (Auto) 10.8 % (1.0-10.0) H Eosinophils (%) (Auto) 6.3 % (0.0-3.0) H Basophils (%) (Auto) 1.5 % (0.0-2.0) Prothrombin Time 9.4 SEC (9.30-11.50) Prothrombin Time INR 0.9 (0.9-1.1) PTT 28 SEC (23-33) Sodium Level 140 MMOL/L (136-145) Potassium Level 3.5 MMOL/L (3.5-5.1) Chloride Level 98 MMOL/L (98-107) Carbon Dioxide Level 30 MMOL/L (21-32) Anion Gap 12 mmol/L (5-15) Blood Urea Nitrogen 19 mg/dL (7-18) H Creatinine 6.0 MG/DL (0.55-1.30) H Estimate Glomerular Filtration Rate 10.2 mL/min (>60) Glucose Level 112 MG/DL (74-106) H Lactic Acid Level 3.40 mmol/L (0.66-2.22) H Calcium Level 7.1 MG/DL (8.5-10.1) L Magnesium Level 2.4 MG/DL (1.8-2.4) Total Bilirubin 0.4 MG/DL (0.2-1.0) Aspartate Amino Transferase (AST) 18 U/L (15-37) Alanine Aminotransferase (ALT) 26 U/L (12-78) Alkaline Phosphatase 144 U/L (46-116) H Total Creatine Kinase 109 U/L (26-308) Troponin I 0.000 ng/mL (0.000-0.056) Pro-B-Type Natriuretic Peptide 65386 pg/mL (0-125) H Total Protein 8.0 G/DL (6.4-8.2) Albumin 3.2 G/DL (3.4-5.0) L Globulin 4.8 g/dL Albumin/Globulin Ratio 0.7 (1.0-2.7) L Lipase 122 U/L (73-393) Microbiology Date/Time Source Procedure Growth Status 02/28/17 19:15 Nasal Nares Influenza Types A,B Antigen (HOLLY) - Final Complete EKG Diagnostic Results Rate: normal Rhythm: NSR ST Segments: no acute changes Rhythm Strip Diag. Results EP Interpretation: yes Rhythm: NSR, no PVC's, no ectopy Chest X-Ray Diagnostic Results Chest X-Ray Diagnostic Results : Chest X-Ray Ordered: Yes # of Views/Limited/Complete: 1 View Indication: Other Interpretation: no effusion, no pneumothorax, other - increased delong R base Impression: Other Electronically Signed by: Electronically signed by Ousmane Villela MD Last Vital Signs Date Time Temp Pulse Resp B/P (MAP) Pulse Ox O2 Delivery O2 Flow Rate FiO2 02/28/17 19:30 98.5 84 18 134/71 96 Room Air Status: improved Disposition: ADMITTED INPATIENT Condition: Serious Ousmane Villela M.D. Feb 28, 2017 18:43
[2017-02-28] MEDS ORDERED: NS 250 ML IVPB ONE (18:45)
[2017-02-28 19:30] VITALS: BP 134/71
[2017-02-28 19:37] LABS: BASOPHILS % (AUTO) 1.5 % (0.0-2.0); EOSINOPHILS % (AUTO) 6.3 % (0.0-3.0); HEMATOCRIT 31.5 % (42.0-52.0); HEMOGLOBIN 9.7 G/DL (14.2-18.0); LYMPHOCYTES % (AUTO) 24.8 % (20.0-45.0); MEAN CORPUSCULAR VOLUME 90 FL (80-99); MONOCYTES % (AUTO) 10.8 % (1.0-10.0); NEUTROPHILS % (AUTO) 56.6 % (45.0-75.0); PLATELET COUNT 261 K/UL (150-450); RED BLOOD COUNT 3.51 M/UL (4.70-6.10); RED CELL DISTRIBUTION WIDTH 11.7 % (11.6-14.8)
[2017-02-28 19:48] LABS: INR 0.9 (0.9-1.1)
[2017-02-28 20:07] LABS: ANION GAP 12 mmol/L (5-15); BLOOD UREA NITROGEN 19 mg/dL (7-18); CALCIUM 7.1 MG/DL (8.5-10.1); CARBON DIOXIDE 30 MMOL/L (21-32); CHLORIDE 98 MMOL/L (98-107); POTASSIUM 3.5 MMOL/L (3.5-5.1); SODIUM 140 MMOL/L (136-145)
[2017-02-28 20:16] LABS: ALANINE AMINOTRANSFERASE 26 U/L (12-78); ALBUMIN 3.2 G/DL (3.4-5.0); ALBUMIN/GLOBULIN RATIO 0.7 (1.0-2.7); ALKALINE PHOSPHATASE 144 U/L (46-116); ASPARTATE AMINO TRANSFERASE 18 U/L (15-37); BILIRUBIN,TOTAL 0.4 MG/DL (0.2-1.0); CREATINE KINASE 109 U/L (26-308)
[2017-02-28 20:30] VITALS: BP 132/68
[2017-02-28 21:40] VITALS: BP 126/67
[2017-02-28] MEDS ORDERED: Azithromycin 500 MG in D5W 275 ML IVPB ONE (21:45)
[2017-02-28] MEDS ORDERED: cefTRIAXone 1 GM in NS 55 ML IVPB ONE (21:45)
[2017-02-28] MEDS ORDERED: Azithromycin 500mg Inj IV ONE (22:08)
[2017-02-28 22:50] VITALS: BP 118/64
[2017-03-01] VITALS (12 sets, daily range): BP systolic 90–145; BP diastolic 48–84
[2017-03-01] MEDS ORDERED: NS 250 ML IVPB ONE (05:00)
[2017-03-01] MEDS ORDERED: PRO-AMATINE2.5 MG ORAL (11:13)
[2017-03-01] MEDS: NovoLOG Insulin Flexpen SUBQ SCH ×2 (17:58→21:26)
[2017-03-01] MEDS: Docusate 100mg cap ORAL SCH (21:00)
[2017-03-01] MEDS: Heparin 5000 units/ml inj SUBQ SCH (21:27)
[2017-03-01] MEDS ORDERED: cefTRIAXone 1 GM in NS 110 ML IVPB SCH (22:00)
[2017-03-02] VITALS: BP 103/60
[2017-03-02 04:00] VITALS: BP 103/65
[2017-03-02] MEDS: NovoLOG Insulin Flexpen SUBQ SCH ×2 (06:46→12:41)
[2017-03-02 08:00] VITALS: BP 107/69
[2017-03-02] MEDS: Docusate 100mg cap ORAL SCH (08:41)
[2017-03-02] MEDS: Heparin 5000 units/ml inj SUBQ SCH (08:43)
[2017-03-02 12:00] VITALS: BP 104/63
[2017-03-02 12:55] LABS: BASOPHILS % (AUTO) 1.1 % (0.0-2.0); EOSINOPHILS % (AUTO) 5.9 % (0.0-3.0); HEMATOCRIT 28.2 % (42.0-52.0); HEMOGLOBIN 9.2 G/DL (14.2-18.0); LYMPHOCYTES % (AUTO) 35.4 % (20.0-45.0); MEAN CORPUSCULAR VOLUME 91 FL (80-99); MONOCYTES % (AUTO) 7.1 % (1.0-10.0); NEUTROPHILS % (AUTO) 50.5 % (45.0-75.0); PLATELET COUNT 259 K/UL (150-450); RED BLOOD COUNT 3.09 M/UL (4.70-6.10); RED CELL DISTRIBUTION WIDTH 12.3 % (11.6-14.8); WHITE BLOOD COUNT 6.3 K/UL (4.8-10.8)
[2017-03-02 13:10] LABS: ANION GAP 15 mmol/L (5-15); BLOOD UREA NITROGEN 35 mg/dL (7-18); CALCIUM 7.2 MG/DL (8.5-10.1); CARBON DIOXIDE 25 MMOL/L (21-32); CHLORIDE 97 MMOL/L (98-107); CREATININE 10.6 MG/DL (0.55-1.30); POTASSIUM 3.9 MMOL/L (3.5-5.1); SODIUM 137 MMOL/L (136-145)
--- NOTE | 2017-03-02 14:11 | Nephrology Progress Note ---
Subjective Subjective Patient left the hospital AMA Objective Objective Last 24 Hour Vital Signs Date Time Temp Pulse Resp B/P (MAP) Pulse Ox O2 Delivery O2 Flow Rate FiO2 03/02/17 12:00 97.7 69 20 104/63 98 Room Air 03/02/17 08:00 68 03/02/17 08:00 97.7 73 20 107/69 98 Room Air 03/02/17 04:00 97.0 90 20 103/65 99 Room Air 03/02/17 03:47 67 03/02/17 00:00 97.2 70 20 103/60 97 Room Air 03/01/17 23:56 71 03/01/17 20:17 76 03/01/17 20:00 98.1 76 20 132/71 100 Room Air 03/01/17 17:05 74 03/01/17 16:00 97.8 73 18 145/80 96 Room Air Intake and Output 03/01/17 03/02/17 19:00 07:00 Intake Total 944 ml 220 ml Balance 944 ml 220 ml Intake Oral 944 ml IV Total 220 ml # Voids 2 2 # Bowel Movements 1 Laboratory Tests 03/02/17 12:30: White Blood Count 6.3, Red Blood Count 3.09L, Hemoglobin 9.2L, Hematocrit 28.2L , Mean Corpuscular Volume 91, Mean Corpuscular Hemoglobin 29.8, Mean Corpuscular Hemoglobin Concent 32.6, Red Cell Distribution Width 12.3, Platelet Count 259, Mean Platelet Volume 6.6, Neutrophils (%) (Auto) 50.5, Lymphocytes (% ) (Auto) 35.4, Monocytes (%) (Auto) 7.1, Eosinophils (%) (Auto) 5.9H, Basophils (%) (Auto) 1.1, Sodium Level 137, Potassium Level 3.9, Chloride Level 97L, Carbon Dioxide Level 25, Anion Gap 15, Blood Urea Nitrogen 35H, Creatinine 10.6H , Estimat Glomerular Filtration Rate 5.3, Glucose Level 171H, Calcium Level 7.2L , Troponin I 0.001 Height (Feet): 5 Weight (Pounds): 123 AKBAR MORALES Mar 02, 2017 14:11
--- NOTE | 2017-03-02 16:00 | History and Physical Report ---
CHIEF COMPLAINT: Dizziness and weakness. HISTORY OF PRESENT ILLNESS: This is a 47-year-old male, who is on dialysis every Thursday, , and Thursday. The patient had his dialysis yesterday. He's homeless and has no regular HD unit. He gets HD mostly as an inpatient in various hospitals in [facility]. Following the dialysis, the patient felt dizzy and unsteady. He presented to this hospital emergency department. Here in the ED, he is afebrile and initial workup was pretty much negative. PAST MEDICAL HISTORY: 1. End-stage renal failure on dialysis. 2. Diabetic nephropathy. 3. Diabetic neuropathy. 4. Hypertensive cardiovascular disease. 5. Noncompliance. HOME MEDICATIONS: Vitamin C, calcium acetate, Levaquin, clonidine, sodium docusate, NovoLog sliding scale, Lantus, labetalol, Reglan p.r.n., Flagyl, and midodrine. ALLERGIES: No known drug allergies. SOCIAL HISTORY: He lives at home. HABITS: He is nonsmoker and nondrinker. There is no history of illicit drug abuse. FAMILY HISTORY: Unremarkable. REVIEW OF SYSTEMS: HEENT: Hearing and eyesight are normal. ENDOCRINE: Significant for type 2 diabetes mellitus. RESPIRATORY: He denies shortness of breath, cough, or hemoptysis. CARDIOVASCULAR: He denies chest pain or palpitations. GASTROINTESTINAL: No history of hematochezia, melena, hematemesis, diarrhea, or constipation. GENITOURINARY: He denies dysuria, frequency, or hematuria. NEUROLOGIC: No history of stroke. PHYSICAL EXAMINATION: GENERAL: This is a middle-aged male, who is in no acute distress. VITAL SIGNS: Blood pressure 97/54, pulse 78 and regular, respirations 19, and temperature 97.5 degrees. HEENT: The head is normocephalic and atraumatic. Pupils are equal, round, and reactive to light and accommodation consensually. NECK: Supple. Trachea midline. There is no lymphadenopathy or thyromegaly. LUNGS: Clear to auscultation and percussion. HEART: Regular rate and rhythm without rubs, murmurs, or gallops. ABDOMEN: Soft. Bowel sounds were active. EXTREMITIES: No clubbing, cyanosis, or edema. NEUROLOGICAL: He is alert and oriented x4. Cranial nerves II through XII intact. LABORATORY AND ANCILLARY DATA: Influenza serology negative. Chest x-ray negative. EKG within normal limits. ASSESSMENT: 1. Fever, etiology unclear. 2. Hypotension, etiology unclear. 3. End-stage renal failure on dialysis. 4. Diabetic nephropathy. 5. Diabetic neuropathy. 6. Hypertensive cardiovascular disease. 8. Noncompliance. PLAN: 1. Admit to telemetry. 2. Observation. 3. Continue home medications.Not sure what they are. 4. HD on patient's schedule. Peyton Somers M.D. DR: Jo JOB#: [id number] CC: ISAURA
--- NOTE | 2017-03-02 23:59 | Cardiology Report ---
APPROVED REPORT EKG Measurement Heart [id number] IA 146P29 [id number] Normal sinus rhythm Nonspecific T wave abnormality Abnormal ECG
--- NOTE | 2017-03-03 15:14 | Diagnostic Imaging Report ---
Indication: Chest pain Technique: XRAY Chest 1v Comparison: 02/21/2017 Findings: Cardiac mediastinal silhouette is stable. Atherosclerotic changes are seen. There is again slight hazy prominence in the lung bases, right greater than left. There is no pneumothorax or pleural effusion. Osseous structures are stable. Impression: Stable hazy prominence in the lung bases, right greater than left. Mild interstitial edema or infiltrate in the right base cannot be excluded. Clinical correlation/follow-up recommended.
--- NOTE | 2017-03-04 13:31 | Discharge Summary ---
Discharge Summary Hospital Course Date of Admission Feb 28, 2017 at 19:55 Date of Discharge Mar 02, 2017 at 14:00 Admitting Diagnosis hypotension/sepsis ESRD HPI Ruperto Sharma is a 47 year old male who was admitted on Feb 28, 2017 at 19:55 for Hypotension Sepsis End Stage Renal Disease Hospital Course DC SUMMARY #[id number] Discharge Discharge Disposition Patient eloped Discharge Diagnoses: Discharge Instructions Discharge Instructions Special Instructions I have been assigned to complete a D/C Summary on this account. I was not involved in the patient management Hortencia Umaña NP (Vanchtein) Mar 04, 2017 13:31
--- NOTE | 2017-03-05 05:15 | Discharge Summary 2 SIG ---
DATE OF ADMISSION: 02/28/2017 DATE OF ELOPEMENT: 03/02/2017 REASON FOR ADMISSION: 47 years old male with history of end-stage renal disease, on hemodialysis, diabetes, and hypertensive heart disease, presented with a complaint of fever and watery diarrhea. Upon evaluation, he was found to be hypotensive. Blood pressure was 73/46. At the time of evaluation, he was afebrile. EKG revealed normal sinus rhythm, no acute ischemic changes. Troponin was negative. No leukocytosis. The patient was anemic with hemoglobin -9.7 and hematocrit -31.5. Chest x-ray revealed increased interstitial markings on the right. The patient was admitted for further management with diagnoses of fever, hypotension, end-stage renal disease, on hemodialysis, hypertensive cardiovascular disease, diabetic nephropathy, diabetic neuropathy, and noncompliance. HOSPITAL COURSE: The patient was admitted. Home medications were resumed. Hemodialysis was arranged. Blood sugar was managed with sliding scale of insulin. Supplemental oxygen and pulmonary toilet were on the standby as needed. Blood pressure improved. Prior to elopement, blood pressure -104/63. Pulse oximetry was stable on room air. Influenza screen test was negative. Blood cultures were negative. The patient was last seen at 13:45 on 03/02/2017. When the nurse went to the room to change his leads since monitor did not show anything, she found the monitor on the floor . Family was notified of patient elopement. FINAL DIAGNOSES: 1. Fever, unknown etiology. 2. Hypotension, unknown etiology. 3. End-stage renal disease, on hemodialysis . 4. Diabetic nephropathy. 5. Diabetic neuropathy. 6. Hypertensive cardiovascular disease. 7. Noncompliance. Peyton Somers M.D. I have been assigned to dictate discharge summary on this account and I was not involved in the patient's management. Hortencia Walterspaige N.PRashid DR: IRA JOB#: [id number] CC: ISAURA
[2017-03-11] MEDS ORDERED: NS 55ml IV ONE (06:00)
[2017-03-11] MEDS ORDERED: D5W 275ml ONE (06:00)
== END 2017-03-02 14:00 | disposition left against medical advice (07) | DRG 722 ==
LOC: MERGE 19:00 → EMR 19:00 → SDSOVERFLO 19:55 → EDBEDREQ 03-01 04:37 → 2E 03-01 06:29
DX: R50.9 Fever, unspecified (principal); I13.11 Hypertensive heart and chronic kidney disease without heart failure, with stage 5 chronic kidney disease, or end stage renal disease; N18.6 End stage renal disease; I95.9 Hypotension, unspecified; E11.21 Type 2 diabetes mellitus with diabetic nephropathy; E11.22 Type 2 diabetes mellitus with diabetic chronic kidney disease; E11.40 Type 2 diabetes mellitus with diabetic neuropathy, unspecified; Z99.2 Dependence on renal dialysis; Z79.4 Long term (current) use of insulin; Z91.15 Patient's noncompliance with renal dialysis; Z59.0 Homelessness
CPT/HCPCS: 36415; 71045; 80048; 80053; 82550; 82962; 83605; 83690; 83735; 83880; 84484; 85025; 85610; 85730; 86710; 87040; 87081; 93005; 99285; J1815